=== PATIENT | female | born 1995 | race Caucasian/White ===

== ENCOUNTER 2020-02-17 23:01 | Emergency (ER) | payer MEDICAID, OTHER ==
[~2020-02-17] VITALS: Ht 162.6 cm; Wt 50.8 kg
--- NOTE | 2020-02-17 23:09 | NUR ---
EKG IN TRIAGE
--- NOTE | 2020-02-17 23:32 | NUR ---
Patient presents to ER c/o "dizzy spells" and intermittent chest pressure and fevers x2 days. Patient states she tested +COVID on Saturday. Denies SOB. Patient is in NAD. Respirations even and unlabored.
--- NOTE | 2020-02-18 00:11 | NUR ---
REPORT FROM ANGEL TOMAS.
[2020-02-18 00:31] VITALS: BP 91/49
== END 2020-02-18 00:55 | disposition home or self-care (01) ==
LOC: ED 02-18
DX: U07.1 COVID-19 (principal); J06.9 Acute upper respiratory infection, unspecified; R50.9 Fever, unspecified; R06.02 Shortness of breath
CPT/HCPCS: 71045; 93005; 99283

== ENCOUNTER 2020-11-11 15:25 | Outpatient (CLI) | payer OTHER ==
[~2020-11-11] VITALS: Ht 160 cm; Wt 66.3 kg
[2020-11-11 16:00] VITALS: BP 121/69
[2020-11-11 16:48] LABS: MICROSCOPIC INDICATED
[2020-11-11] MEDS ORDERED: PREN1TAB10 PO (17:45)
[2020-11-11 18:45] LABS: AMPHETAMINE SCREEN, URINE Negative (Negative); BARBITURATE SCREEN, URINE Negative (Negative); BENZODIAZEPINE SCREEN, URINE Negative (Negative); CANNABINOID SCREEN, URINE Negative (Negative); COCAINE SCREEN, URINE Negative (Negative); METHADONE SCREEN, URINE Negative (Negative); OPIATE SCREEN, URINE Negative (Negative)
[2020-11-18] MEDS ORDERED: OXYC1TAB12 PO (15:34)
[2020-11-18] MEDS ORDERED: IBUP-1222 PO (15:35)
== END 2020-11-11 18:10 | disposition home or self-care (01) ==
LOC: LDOP 15:25
PROVIDERS: ATTEND Obstetrics & Gynecology
DX: O26.893 Other specified pregnancy related conditions, third trimester (principal); R10.9 Unspecified abdominal pain; Z3A.38 38 weeks gestation of pregnancy
CPT/HCPCS: 59025; 80307; 81001; 87086